=== PATIENT | female | born 1955 | race Caucasian/White ===

== ENCOUNTER 2016-09-28 21:50 | Observation (INO) | payer OTHER ==
[~2016-09-28] VITALS: Ht 165.1 cm; Wt 118.2 kg
[~2016-09-28 21:50] MED LIST: ARTHROTEC 501 TABLET PO; BACLOFEN20 MG PO; BENICAR20 MG PO; CETIRIZINE HCL10 M2 PO; CRESTOR10 MG PO; Ecotrin PO; GLIMEPIRIDE2 MG PO; GLIMEPIRIDE4 MG PO; ISOSORBIDE MONO30 MG PO; LEVOXYL112 MCG PO; METFORMIN HCL750 MG PO; PAXIL CR25 MG PO; PLAVIX75 MG PO; PROTONIX40 MG PO; Percocet 5/325,Endoc PO; TOPROL XL100 MG PO; TRIAMTERENE-HC1 EACH PO; Ultram PO
[2016-09-29] MEDS ORDERED: ULTRAM50 MG PO (00:54)
[2016-09-29] MEDS ORDERED: SPIRONOLACTONE25 MG PO (00:55)
[2016-09-29] MEDS ORDERED: LO-DOSE ASPIRIN81 M2 PO (00:55)
[2016-09-29] MEDS ORDERED: FLONASE16 G1 BOTH NARES (00:55)
[2016-09-29] MEDS ORDERED: HYDROCHLOROTHIA25 MG PO (00:55)
[2016-09-29] MEDS ORDERED: ALLOPURINOL100 MG PO (00:56)
[2016-09-29] MEDS ORDERED: ERGOCALCIF50000 UNIT PO (00:56)
[2016-09-29] MEDS ORDERED: EFFEXOR XR75 MG PO (00:57)
[2016-09-29] MEDS ORDERED: LEVEMIR FL100 UNIT/1 SC (00:57)
[2016-09-29] MEDS ORDERED: METFORMIN HCL750 MG PO (00:57)
[2016-09-29 02:46] LABS: HEMATOCRIT 37.4 % (36.0-46.0); MCH 28.4 PG (29.0-34.0); MCHC 32.6 G/DL (30.0-36.0); MCV 87.2 FL (83-99); MEAN PLAT.VOLUME 10.6 uM^3 (9.5-12.4); PLATELET COUNT 281 K/uL (156-360); RBC DIS.WIDTH-CV 13.7 % (11.8-14.6); RBC DIS.WIDTH-SD 43.2 % (39-53); RED BLOOD COUNT 4.29 M/uL (3.80-5.20); WHITE BLOOD COUNT 11.9 K/uL (4.1-10.2)
[2016-09-29 03:03] LABS: CHLORIDE 103 mEq/L (99-109); POTASSIUM 4.8 mEq/L (3.7-5.4); SODIUM 138 mEq/L (136-147)
[2016-09-29 03:04] LABS: GLUCOSE 237 mg/dL (70-99)
[2016-09-29 03:06] LABS: ANION GAP 11 MEQ/L (2-14)
[2016-09-29 03:08] LABS: GFR ESTIMATE (CALCULATED) 44 mL/min/
[2016-09-29 03:09] LABS: UREA NITROGEN (BUN) 24 mg/dL (9-23)
[2016-09-29 07:21] VITALS: BP 140/65
[2016-09-29 07:35] LABS: HEMATOCRIT 37.9 % (36.0-46.0); MCH 28.3 PG (29.0-34.0); MCHC 31.9 G/DL (30.0-36.0); MCV 88.8 FL (83-99); MEAN PLAT.VOLUME 11.1 uM^3 (9.5-12.4); PLATELET COUNT 293 K/uL (156-360); RBC DIS.WIDTH-CV 13.6 % (11.8-14.6); RBC DIS.WIDTH-SD 44.4 % (39-53); RED BLOOD COUNT 4.27 M/uL (3.80-5.20); WHITE BLOOD COUNT 10.2 K/uL (4.1-10.2)
[2016-09-29 07:45] LABS: ALKALINE PHOSPHATASE 68 IU/L (3-129); ANION GAP 11 MEQ/L (2-14); CHLORIDE 98 MEQ/L (99-109); GFR ESTIMATE (CALCULATED) 40 mL/min/; GLUCOSE 242 mg/dL (70-99); POTASSIUM 5.1 MEQ/L (3.7-5.4); SAMPLE HEMOLYSIS CHECK 0; SAMPLE ICTERIC CHECK 0; SAMPLE LIPEMIA CHECK 0; SODIUM 137 MEQ/L (136-147); TOTAL BILIRUBIN 0.4 MG/DL (0.0-1.0); UREA NITROGEN (BUN) 28 mg/dL (9-23)
[2016-09-29 08:28] LABS: POINT-OF-CARE METER ID UU13113831
[2016-09-29 12:16] LABS: POINT-OF-CARE METER ID UU13113831
[2016-09-29 15:12] VITALS: BP 128/54
[2016-09-29 16:56] LABS: POINT-OF-CARE METER ID UU13113831
[2016-09-29 19:30] VITALS: BP 145/66
[2016-09-29 21:34] LABS: POINT-OF-CARE METER ID UU13113831
[2016-09-30 03:56] VITALS: BP 130/63
[2016-09-30 07:52] LABS: POINT-OF-CARE METER ID UU13113700
[2016-09-30 08:19] VITALS: BP 174/79
[2016-09-30] MEDS ORDERED: DEXAMETHASONE4 MG PO (08:21)
[2016-09-30] MEDS ORDERED: DEXAMETHASONE2 MG PO (08:23)
== END 2016-09-30 09:33 | disposition home or self-care (01) ==
LOC: EME 21:50 → RME 21:50 → 5WEST 09-29 02:05 → EDOF 09-29 02:05 → 5WEST 09-29 03:35
PROVIDERS: Internal Medicine; Physician Assistant; Student in an Organized Health Care Education/Training Program
DX: G43.919 Migraine, unspecified, intractable, without status migrainosus (principal); I25.10 Atherosclerotic heart disease of native coronary artery without angina pectoris; E11.9 Type 2 diabetes mellitus without complications; E03.9 Hypothyroidism, unspecified; I10 Essential (primary) hypertension; M10.9 Gout, unspecified; F32.9 Major depressive disorder, single episode, unspecified; Z95.5 Presence of coronary angioplasty implant and graft; Z79.4 Long term (current) use of insulin; G35 Multiple sclerosis; H53.8 Other visual disturbances; E66.01 Morbid (severe) obesity due to excess calories
CPT/HCPCS: 70450; 80048; 80053; 82948; 85027; 93880; 99281; 99285; G0378; J1100; J1644; J1815; J1885; J2405; J3360; J7030; S0028

== ENCOUNTER 2017-04-10 07:42 | Day surgery (SDC) | payer OTHER ==
[~2017-04-10] VITALS: Ht 167.6 cm; Wt 120.0 kg
[~2017-04-10 07:42] MED LIST changes: +ADVAIR 500/501 DISK IH; +ALLOPURINOL100 MG PO; +ASCORBIC ACID500 M1 PO; +ASPIRIN81 M2 PO; +BIOTIN PO; +BIOTIN5 M1 PO; +CALCIUM 600 MG1 EACH PO; +CALCIUM PO; +COLCRYS0.6 MG PO; +DEXAMETHASONE2 MG PO; +DEXAMETHASONE4 MG PO; +EFFEXOR XR75 MG PO; +ERGOCALCIF50000 UNIT PO; +FLONASE16 G1 BOTH NARES; +HUMALOG100 UNIT/2 SC; +HYDROCHLOROTHIA25 MG PO; +LEVEMIR FL100 UNIT/1 SC; +LO-DOSE ASPIRIN81 M2 PO; +MULTIVITAMIN1 EAC2 PO; +NITROSTAT0.4 MG SL; +SPIRONOLACTONE25 MG PO; +TECFIDERA240 MG PO; +ULTRAM50 MG PO; +VENTOLIN HFA18 GM IH
[2017-04-10 08:23] LABS: POINT-OF-CARE METER ID UU13113696
[2017-04-10 12:54] LABS: POINT-OF-CARE METER ID UU13113819
[2017-04-10 15:15] VITALS: BP 145/69
[2017-04-10 16:15] VITALS: BP 143/71
[2017-04-10 16:32] LABS: POINT-OF-CARE METER ID UU14314088
[2017-04-10 21:02] LABS: POINT-OF-CARE METER ID UU13113781
[2017-04-10 21:19] VITALS: BP 142/70
[2017-04-10 22:52] VITALS: BP 146/77
[2017-04-11 04:00] VITALS: BP 144/70
[2017-04-11 05:13] LABS: BASOPHIL COUNT 0.1 K/uL (0-0.1); EOSINOPHIL COUNT 0.5 K/uL (0-0.3); IMMATURE GRANULOCYTE (%) 0.3 % (0.0-0.7); INSTRUMENT ABS NEUTROPHIL CT 5.8 K/uL; LYMPHOCYTE COUNT 2.9 K/uL (1.0-2.8); MCH 28.1 PG (29.0-34.0); MCHC 31.4 G/DL (30.0-36.0); MCV 89.6 FL (83-99); MEAN PLAT.VOLUME 10.9 uM^3 (9.5-12.4); MONOCYTE (%) 6.6 % (3-12); MONOCYTE COUNT 0.7 K/uL (0-0.8); NEUTROPHIL (%) 58.4 % (45-76); NEUTROPHIL COUNT 5.8 K/uL (1.8-6.4); PLATELET COUNT 274 K/uL (156-360); RBC DIS.WIDTH-CV 14.2 % (11.8-14.6); RBC DIS.WIDTH-SD 46.2 % (39-53); RED BLOOD COUNT 4.02 M/uL (3.80-5.20)
[2017-04-11 05:58] LABS: ANION GAP 7 MEQ/L (2-14); CHLORIDE 104 MEQ/L (99-109); GFR ESTIMATE (CALCULATED) 48 mL/min/; GLUCOSE 131 mg/dL (70-99); HDL CHOLESTEROL 37 MG/DL (Desirable>=50); LDL CHOLESTEROL 137 mg/dL (Desirable<100); NON-HDL CHOLESTEROL 171 mg/dL (Desirable<160); POTASSIUM 4.3 MEQ/L (3.7-5.4); SAMPLE HEMOLYSIS CHECK 0; SAMPLE ICTERIC CHECK 0; SAMPLE LIPEMIA CHECK 0; SODIUM 141 MEQ/L (136-147); TOTAL CHOLESTEROL 208 mg/dL (Desirable<200); TRIGLYCERIDES 171 MG/DL (Normal: <150); UREA NITROGEN (BUN) 28 mg/dL (9-23)
[2017-04-11 07:04] LABS: Estimated Average Glucose 171 mg/dL (70-123); HEMOGLOBIN A1c (GLYCOHEMOGLOB) 7.6 % HGB (Below 5.7)
[2017-04-11 07:59] LABS: POINT-OF-CARE METER ID UU14314088; POINT-OF-CARE USER ID ENVKC36
[2017-04-11 08:28] VITALS: BP 149/82
[2017-04-11] MEDS ORDERED: CRESTOR5 MG PO (10:41)
[2017-04-11] MEDS ORDERED: CLOPIDOGREL75 MG PO (10:41)
[2017-04-11] MEDS ORDERED: FAMOTIDINE20 MG PO (10:41)
[2017-04-11 11:47] LABS: POINT-OF-CARE METER ID UU13113781; POINT-OF-CARE USER ID ENVKC36
[2017-04-11 12:20] VITALS: BP 107/79
== END 2017-04-11 12:17 | disposition home or self-care (01) ==
LOC: CATH 07:42 → 2SOUTH 12:00 → 4EAST 12:00 → 2SOUTH 12:00 → ENRESERV 13:04 → 4EAST 14:33 → ENPENDDIS 04-11 → 4EAST 04-11 12:17
PROVIDERS: Internal Medicine Cardiovascular Disease
DX: I25.119 Atherosclerotic heart disease of native coronary artery with unspecified angina pectoris (principal); T82.855A Stenosis of coronary artery stent, initial encounter; I10 Essential (primary) hypertension; R94.31 Abnormal electrocardiogram [ECG] [EKG]; E66.01 Morbid (severe) obesity due to excess calories; Z68.41 Body mass index [BMI] 40.0-44.9, adult; Z79.02 Long term (current) use of antithrombotics/antiplatelets; Z95.5 Presence of coronary angioplasty implant and graft
CPT/HCPCS: 80048; 80061; 82948; 83036; 85025; 85347; 93005; 94640; 94640 76; 99202; C1725; C1769; C1874; C1887; G0378; J0360; J0583; J1644; J1815; J2250; J3010; J7030